=== PATIENT | female | born 1940 | race Caucasian/White ===

== ENCOUNTER 2018-11-01 02:26 | Inpatient (IN) | payer MEDICARE ==
[~2018-11-01] VITALS: Ht 172.7 cm; Wt 97.4 kg
[2018-11-01 03:20] LABS: BASOPHIL % 0.3 % (0-2); PLATELET COUNT 210 x10^3mcL (130-400)
[2018-11-01 03:21] LABS: RED CELL DISTRIBUTION WIDTH 15.1 % (11.5-14.5)
[2018-11-01 03:36] LABS: ALKALINE PHOSPHATASE 50 U/L (46-116); ALT/SGPT 21 U/L (14-59); AST/SGOT 13 U/L (15-37); BILIRUBIN TOTAL 1.02 mg/dL (0.20-1.00); CALCIUM 8.7 mg/dL (8.5-10.1); CARBON DIOXIDE 22.9 mmol/L (21-32); CHLORIDE SERUM 106 mmol/L (98-107); CREATININE SERUM 1.5 mg/dL (0.6-1.0); GLUCOSE SERUM 246 mg/dL (74-106); LIPASE 73 IU/L (73-393); POTASSIUM SERUM 4.2 mmol/L (3.5-5.1); SODIUM SERUM 143 mmol/L (136-145)
[2018-11-01] MEDS ORDERED: SIMVASTATIN20 M1 PO (03:42)
[2018-11-01] MEDS ORDERED: CLOPIDOGREL75 M1 PO (03:43)
[2018-11-01] MEDS ORDERED: HYDROCHLOROTHIA25 MG PO (03:43)
[2018-11-01] MEDS ORDERED: LOPRESSOR50 M1 PO (03:43)
[2018-11-01] MEDS ORDERED: AMLODIPINE BESY10 M2 PO (03:44)
[2018-11-01] MEDS ORDERED: ZESTRIL40 MG PO (03:44)
[2018-11-01 03:48] LABS: ALBUMIN 2.7 g/dL (3.4-5.0); AMYLASE 24 U/L (25-115); TOTAL PROTEIN, SERUM 4.8 g/dL (6.4-8.2)
[2018-11-01 06:29] LABS: CHOLESTEROL/HDL RATIO 2.3; MAGNESIUM 1.8 mg/dL (1.8-2.4); PHOSPHOROUS 4.8 mg/dL (2.5-4.9)
[2018-11-01 06:36] LABS: FREE T4 1.26 ng/dL (0.76-1.46); FREE THYROXINE INDEX 2.4 ug/dL (1.4-4.5)
[2018-11-01 06:37] LABS: T3 TOTAL 0.62 ng/mL
[2018-11-01 06:55] VITALS: BP 102/61
[2018-11-01 10:53] LABS: microscopic required? YES; urine erythrocyte 3+ (NEGATIVE)
[2018-11-01 12:46] VITALS: BP 113/78
[2018-11-01 15:28] VITALS: BP 85/71
[2018-11-01 19:20] VITALS: BP 107/78
[2018-11-01 21:15] LABS: BASOPHIL % 0.2 % (0-2); PLATELET COUNT 162 x10^3mcL (130-400); RED CELL DISTRIBUTION WIDTH 15.6 % (11.5-14.5)
[2018-11-01 23:00] VITALS: BP 86/68
[2018-11-02 03:00] VITALS: BP 107/65
[2018-11-02 05:27] LABS: BASOPHIL % 0.4 % (0-2); PLATELET COUNT 145 x10^3mcL (130-400); RED CELL DISTRIBUTION WIDTH 16.4 % (11.5-14.5)
[2018-11-02 05:34] LABS: CALCIUM 8.5 mg/dL (8.5-10.1); CARBON DIOXIDE 24.5 mmol/L (21-32); CHLORIDE SERUM 113 mmol/L (98-107); CREATININE SERUM 0.9 mg/dL (0.6-1.0); GLUCOSE SERUM 105 mg/dL (74-106); MAGNESIUM 2.2 mg/dL (1.8-2.4); POTASSIUM SERUM 3.5 mmol/L (3.5-5.1); SODIUM SERUM 144 mmol/L (136-145)
[2018-11-02 07:25] VITALS: BP 114/68
[2018-11-02 10:44] VITALS: Ht 172.7 cm; Wt 97.4 kg
[2018-11-02 11:45] VITALS: BP 107/62
[2018-11-02 15:42] VITALS: BP 104/61
[2018-11-02] MEDS ORDERED: METOPROLOL TART25 M1 PO (18:54)
[2018-11-02] MEDS ORDERED: DIGOXIN0.25 M1 PO (18:55)
[2018-11-02] MEDS ORDERED: NATURAL IRON65 MG PO (18:56)
[2018-11-02 19:08] VITALS: BP 102/60
[2018-11-02 19:15] VITALS: BP 102/60
== END 2018-11-02 20:27 | disposition short-term general hospital (02) | DRG 377 ==
LOC: ED 02:26 → IC 05:10 → DU 11-02 17:58
PROVIDERS: Emergency Medicine; Internal Medicine Gastroenterology; ADMIT General Practice
PROC: 0W3P8ZZ Control Bleeding in Gastrointestinal Tract, Via Natural or Artificial Opening Endoscopic (ICD-10-PCS; principal; 2018-11-01 11:00)
PROC: 0DJD8ZZ Inspection of Lower Intestinal Tract, Via Natural or Artificial Opening Endoscopic (ICD-10-PCS; 2018-11-02)
DX: K92.2 Gastrointestinal hemorrhage, unspecified (principal); R57.8 Other shock; E43 Unspecified severe protein-calorie malnutrition; N17.0 Acute kidney failure with tubular necrosis; E86.0 Dehydration; I48.91 Unspecified atrial fibrillation; D72.829 Elevated white blood cell count, unspecified; I10 Essential (primary) hypertension; I25.10 Atherosclerotic heart disease of native coronary artery without angina pectoris; Z68.38 Body mass index [BMI] 38.0-38.9, adult; Z86.73 Personal history of transient ischemic attack (TIA), and cerebral infarction without residual deficits
CPT/HCPCS: 43235; 45378; 83880; 84439; C9113; G0378; J0171; J1160; J1200; J1610; J2250; J2310; J2405; J2765; J3010; J3490; J7030; J7050; P9016; Q0092